=== PATIENT | male | born 1935 | race Caucasian/White ===

== ENCOUNTER 2024-02-21 10:16 | Emergency (ER) | payer MEDICARE ==
[2024-02-21] MEDS ORDERED: Morphine 4 MG/ML VIAL ONE (13:30)
== END 2024-02-21 15:03 | disposition home or self-care (01) ==
LOC: CSHERS 10:16
DX: S40.022A Contusion of left upper arm, initial encounter (principal); R60.0 Localized edema; E11.9 Type 2 diabetes mellitus without complications; Z55.0 Illiteracy and low-level literacy; Z87.891 Personal history of nicotine dependence; X58.XXXA Exposure to other specified factors, initial encounter
CPT/HCPCS: 93971; J2272; 96372